=== PATIENT | female | born 1940 | race Two or more races ===

== ENCOUNTER 2017-10-27 08:33 | Outpatient (CLI) | payer OTHER | END 2017-10-27 11:28 | disposition home or self-care (01) | LOC: SONOGRAMA 08:33 | DX: M25.512 Pain in left shoulder (principal); M25.511 Pain in right shoulder ==

== ENCOUNTER → 2017-10-27 | Outpatient (CLI) | payer OTHER ==
[~2017-10-27] MED LIST: CIPRO500 MG PO; GLIPIZIDE5 MG; GLUMETZA1000 MG; TENORMIN50 MG; ULTRACET PO
== END | disposition home or self-care (01) ==
LOC: NUCLEAR 07:16
DX: M81.0 Age-related osteoporosis without current pathological fracture (principal)

== ENCOUNTER 2017-11-12 10:40 | Outpatient (CLI) | payer OTHER | END 2017-11-12 10:46 | disposition home or self-care (01) | LOC: LAB 10:40 | DX: R30.0 Dysuria (principal); B96.20 Unspecified Escherichia coli [E. coli] as the cause of diseases classified elsewhere ==

== ENCOUNTER 2017-11-12 12:55 | Outpatient (CLI) | payer OTHER | END 2017-11-12 12:56 | disposition home or self-care (01) | LOC: SONOGRAMA 12:55 | DX: M25.512 Pain in left shoulder (principal) ==

== ENCOUNTER → 2017-11-13 09:55 | Outpatient (CLI) | payer OTHER | END | disposition home or self-care (01) | LOC: LAB 09:55 | DX: Z12.11 Encounter for screening for malignant neoplasm of colon (principal) ==

== ENCOUNTER 2019-02-15 05:47 | Day surgery (SDC) | payer OTHER ==
[~2019-02-15 05:47] MED LIST changes: +LANTUS IJ; +LOSARTAN POTAS100 MG
== END 2019-02-15 20:35 | disposition home or self-care (01) ==
LOC: CIR.AMB 05:47
DX: M66.321 Spontaneous rupture of flexor tendons, right upper arm (principal); D16.01 Benign neoplasm of scapula and long bones of right upper limb

== ENCOUNTER 2019-03-30 09:31 | Outpatient (CLI) | payer OTHER | END 2019-03-30 09:42 | disposition home or self-care (01) | LOC: RAD 09:31 | DX: M66.321 Spontaneous rupture of flexor tendons, right upper arm (principal) ==

== ENCOUNTER 2019-11-01 11:53 | Emergency (ER) | payer OTHER ==
[~2019-11-01] VITALS: Ht 154.9 cm; Wt 50.8 kg
[2019-11-01] MEDS ORDERED: GLIPIZIDE XL10 MG PO (12:28)
[2019-11-01] MEDS ORDERED: GABAPENTIN300 M2 PO (12:28)
[2019-11-01] MEDS ORDERED: TENORMIN50 M1 PO (12:28)
[2019-11-01] MEDS ORDERED: DITROPAN XL10 MG PO (12:28)
[2019-11-01] MEDS ORDERED: ISOSORBIDE MONO30 M2 PO (12:29)
[2019-11-01] MEDS ORDERED: ALLER-TEC10 MG PO (12:30)
[2019-11-01] MEDS ORDERED: ADULT LOW DOSE81 M1 PO (12:30)
[2019-11-01] MEDS ORDERED: DUI500 PO (15:17)
== END 2019-11-01 15:54 | disposition home or self-care (01) ==
LOC: ER 11:53
DX: I87.2 Venous insufficiency (chronic) (peripheral) (principal); R60.0 Localized edema

== ENCOUNTER 2022-03-13 09:43 | Emergency (ER) | payer OTHER ==
[~2022-03-13] VITALS: Ht 154.9 cm; Wt 45.4 kg
[~2022-03-13 09:43] MED LIST changes: +ADULT LOW DOSE81 M1 PO; +ALLER-TEC10 MG PO; +DITROPAN XL10 MG PO; +DUI500 PO; +GABAPENTIN300 M2 PO; +GLIPIZIDE XL10 MG PO; +ISOSORBIDE MONO30 M2 PO; +TENORMIN50 M1 PO
[2022-03-13] MEDS ORDERED: CIPRO500 MG PO (13:27)
== END 2022-03-13 14:26 | disposition home or self-care (01) ==
LOC: ER 09:43
DX: M54.50 Low back pain, unspecified (principal)

== ENCOUNTER 2023-02-05 11:19 | Emergency (ER) | payer OTHER ==
[~2023-02-05] VITALS: Ht 154.9 cm; Wt 46.7 kg
[2023-02-05] MEDS ORDERED: AMOX-CLAV 875-1 EACH PO (12:07)
== END 2023-02-05 12:36 | disposition home or self-care (01) ==
LOC: ER 11:19
DX: H66.91 Otitis media, unspecified, right ear (principal)
CPT/HCPCS: 96365; 96372; 99284; J0696; J1885

== ENCOUNTER 2023-02-15 19:34 | Emergency (ER) | payer OTHER ==
[~2023-02-15] VITALS: Ht 154.9 cm; Wt 45.4 kg
[~2023-02-15 19:34] MED LIST changes: +AMOX-CLAV 875-1 EACH PO
== END 2023-02-15 22:03 | disposition home or self-care (01) ==
LOC: ER 19:34
DX: H60.90 Unspecified otitis externa, unspecified ear (principal); E11.9 Type 2 diabetes mellitus without complications; Z88.8 Allergy status to other drugs, medicaments and biological substances
CPT/HCPCS: 96372; 99282; J1885

== ENCOUNTER 2023-11-04 10:48 | Emergency (ER) | payer OTHER ==
[~2023-11-04] VITALS: Ht 152.4 cm; Wt 44.9 kg
[2023-11-04 13:14] LABS: HEMATOCRIT 34.7 % (36.0-45.00); HEMOGLOBIN 11.9 g/dL (12.0-15.00); MEAN CELL VOLUME 81.1 fL (80.00-100.00); MEAN CORPUSCULAR HEMOGLOBIN 27.8 pg (27.00-32.0); MEAN CORPUSCULAR HGB CONC 34.3 g/dl (32.0-36.0); PLATELET COUNT 181 K/uL (150-450); RED BLOOD COUNT 4.28 M/uL (4.00-6.00); RED CELL DISTRIBUTION WIDTH 12.7 % (11.5-14.5)
[2023-11-04 13:27] LABS: PH,URINE 7.5 (5.0-8.0); URINE APPEARANCE Clear; URINE BILIRRUBIN Negative (NEGATIVE); URINE BLOOD NHT; URINE COLOR Yellow; URINE GLUCOSE Negative (NEGATIVE); URINE LEUKOCYTE Negative; URINE NITRATE Negative; URINE PROTEIN Negative (NEGATIVE); URINE UROBILINOGEN 0.2 E.U./dl
[2023-11-04 13:30] LABS: URINE RBC 8.8 uL (0.0-20.8)
[2023-11-04 13:33] LABS: URINE BACTERIA 2.5 uL (0.0-1933); URINE WBC 0.6 uL (0.0-23.2)
== END 2023-11-04 14:45 | disposition home or self-care (01) ==
LOC: ER 10:49
DX: R60.0 Localized edema (principal); E11.9 Type 2 diabetes mellitus without complications; Z79.4 Long term (current) use of insulin; Z88.8 Allergy status to other drugs, medicaments and biological substances